=== PATIENT | female | born 1975 | race Caucasian/White ===

== ENCOUNTER 2018-10-09 12:38 | Emergency (ER) | payer MEDICAID, MEDICARE ==
[~2018-10-09] VITALS: Ht 160 cm; Wt 95.5 kg
[2018-10-09 12:43] VITALS: BP 155/92
== END 2018-10-09 13:58 | disposition left against medical advice (07) ==
LOC: ED 12:40
DX: M79.661 Pain in right lower leg (principal); Z53.21 Procedure and treatment not carried out due to patient leaving prior to being seen by health care provider

== ENCOUNTER 2021-02-11 04:25 | Emergency (ER) | payer SELFPAY ==
[~2021-02-11] VITALS: Ht 160 cm; Wt 96.3 kg
[2021-02-11 04:27] VITALS: BP 136/89
--- NOTE | 2021-02-11 05:29 | NUR ---
Rx reviewed. Pt instructed to f/u with dentist. Patient/Caregiver given discharge instructions and they have confirmed that they understand the instructions. Patient ambulatory with steady gait.
== END 2021-02-11 05:31 | disposition home or self-care (01) ==
LOC: ED 05:20
DX: K02.9 Dental caries, unspecified (principal)
CPT/HCPCS: 99283